=== PATIENT | male | born 2000 ===

== ENCOUNTER 2023-08-02 07:30 | Outpatient (CLI) | payer OTHER ==
--- NOTE | 2023-08-02 11:12 | XRAY Report ---
PROCEDURE: Chest 2V INDICATIONS: SINUS CONGESTION TECHNIQUE: 2 views of the chest were acquired. COMPARISON: None. FINDINGS: Surgical changes and devices: None. Lungs and pleura: No pleural effusions or pneumothorax. Lungs are clear. Mediastinum: Mediastinal contours appear normal. Heart size is normal. Bones and chest wall: No suspicious bony lesions. Overlying soft tissues appear unremarkable. IMPRESSION: No acute cardiopulmonary process. Reviewed by: Dean Toussaint MD on 08/02/2023 11:11 AM [facility] Approved by: Dean Toussaint MD on 08/02/2023 11:11 AM [facility] Station ID: [id number]
== END 2023-08-02 07:45 | disposition home or self-care (01) ==
LOC: DI.N 07:30
PROVIDERS: ATTEND Physician Assistant Medical
DX: J34.89 Other specified disorders of nose and nasal sinuses (principal)